=== PATIENT | female | born 1965 | race Two or more races ===

== ENCOUNTER 2020-07-20 07:23 | Day surgery (SDC) | payer BC ==
[2020-07-20] VITALS (10 sets, daily range): BP systolic 91–121; BP diastolic 55–84
[~2020-07-20] VITALS: Ht 170.2 cm; Wt 61.2 kg
[~2020-07-20 07:23] MED LIST: AHCC PO; CALCIUM MAGNES1 EAC2 PO; FISH OIL CAP1000 MG ORAL; OCCUVITE PO; PHYTOESTROGEN; PHYTOESTROGEN PO; SEROVITAL PO; VITAMIN C500 M1 ORAL; VITAMIN E100 UNI3 ORAL; WOMEN'S DAILY1 EAC2 PO; [UNRECOGNIZED DRUG - OTHER] PO; [UNRECOGNIZED DRUG - OTHER] PO
[2020-07-20] MEDS ORDERED: LR 1000ml 1,000 ML IVLG SCH ×2 (08:00→08:45)
[2020-07-20] MEDS ORDERED: Midazolam 2mg/2ml Inj ONE (08:04)
[2020-07-20] MEDS ORDERED: fentaNYL 100 mcg/2 mL IV ONE (08:04)
[2020-07-20] MEDS ORDERED: relizen PO (08:06)
[2020-07-20] MEDS ORDERED: LR 1000ml ONE (08:30)
--- NOTE | 2020-07-20 08:31 | Anethesia Preoperative Eval ---
Anesthesia Pre-op PMH/ROS General Date of Evaluation: Jul 20, 2020 Time of Evaluation: 08:28 Anesthesiologist: Any ASA Score: ASA 2 Mallampati Score Class I : Soft palate, uvula, fauces, pillars visible Class II: Soft palate, uvula, fauces visible Class III: Soft palate, base of uvula visible Class IV: Only hard plate visible Mallampati Classification: Class II Surgeon: Kasia Diagnosis: Abdominal pain Surgical Procedure: EGD Colonoscopy Anesthesia History: none Family History: no anesthesia problems Allergies: Coded Allergies: No Known Allergies (Unverified , 07/18/20) Medications: see eMAR Patient NPO?: Yes Past Medical History Cardiovascular: Denies: HTN, CAD, AR, valve dz, arrhythmia, other Pulmonary: Denies: asthma, COPD, LAURO, other Gastrointestinal/Genitourinary: Reports: GERD; Denies: CRI, ESRD, other Neurologic/Psychiatric: Reports: depression/anxiety; Denies: dementia, CVA, TIA, other Endocrine: Denies: DM, hypothyroidism, steroids, other HEENT: Denies: cataract (L), cataract (R), glaucoma, SENECA (L), SENECA (R), other Hematology/Immune: Reports: anemia - mild; Denies: DVT, bleeding disorder, other Musculoskeletal/Integumentary: Denies: OA, RA, DJD, DDD, edema, other PMH Narrative: as above PSxH Narrative: see H&P Anesthesia Pre-op Phys. Exam Physician Exam Last Vital Signs Date Time Temp Pulse Resp B/P (MAP) Pulse Ox O2 Delivery O2 Flow Rate FiO2 07/20/20 08:22 Room Air 07/20/20 08:21 97.9 80 20 121/84 100 Constitutional: NAD Neurologic: CN 2-12 intact Cardiovascular: RRR, no M/R/G Respiratory: CTA Gastrointestinal: S/NT/ND Airway Exam Mallampati Score: Class II MO: full Neck: flexible ROM: full Teeth: intact Dentures: no upper, no lower Anesthesia Pre-op A/P Labs Urine Test Test 07/20/20 07:30 Urine HCG, Qualitative Negative (NEGATIVE) Studies Pre-op Studies: EKG - SR Risk Assessment & Plan Assessment: ASA 2 Plan: MAC Status Change Before Surgery: No Lucho Agarwal MD Jul 20, 2020 08:31
--- NOTE | 2020-07-20 08:40 | Pre-Procedure Note/Attestation ---
Pre-Procedure Note/Attestation Complete Prior to Procedure Planned Procedure: not applicable Procedure Narrative: esophagogastroduodenoscopy and colonoscopy Indications for Procedure Pre-Operative Diagnosis: + cologuard Attestation I attest that I discussed the nature of the procedure; its benefits; risks and complications; and alternatives (and the risks and benefits of such alternatives ), prior to the procedure, with the patient (or the patient's legal manufacturing sales representative). I attest that, if there was a reasonable possibility of needing a blood transfusion, the patient (or the patient's legal manufacturing sales representative) was given the [facility] standardized written summary, pursuant to the [place] Blood Safety Act ([place] Health and Safety Code # 1645, as amended). I attest that I re-evaluated the patient just prior to the surgery and that there has been no change in the patient's H&P, except as documented below: Quirino Pedroza MD Jul 20, 2020 08:40
--- NOTE | 2020-07-20 08:42 | Short Stay Surgery H&P ---
History of Present Illness History of Present Illness Chief Complaint + cologuard, GERD HPI Jasmina Buckley is a 55 year old female who was admitted on for + Collar Guard Patient History Allergies: Coded Allergies: No Known Allergies (Unverified , 07/18/20) PAST MEDICAL HISTORY: (1) GERD (gastroesophageal reflux disease) (2) H/O breast augmentation Medication History Scheduled Ascorbic Acid* (Vitamin C*), 500 MG ORAL DAILY, (Reported) Ca Carb & Gluc/Mag Ox & Gluc (Calcium Magnesium Caplet), 1 EACH PO DAILY, (Reported) Fish Oil (Fish Oil 1,000 mg Capsule), 1,000 MG ORAL DAILY, (Reported) Multivits,Ca,Minerals/Iron/Fa (Women's Daily Caplet), 1 EACH PO DAILY, (Reported) Vitamin E Mixed (Vitamin E), 100 UNIT ORAL DAILY, (Reported) [Ahcc], 2 TAB PO DAILY, (Reported) [Colhash], 1 TAB PO DAILY, (Reported) [HAjoint], 2 TAB PO DAILY, (Reported) [Occuvite], 2 TAB PO DAILY, (Reported) [Phytoestrogen], 1 TAB PO DAILY, (Reported) [Serovital], 1 PACKET PO DAILY, (Reported) [relizen], 1 TAB PO DAILY, (Reported) Review of Systems Cardiovascular: Reports: no symptoms Respiratory: Reports: no symptoms Skeletal: Reports: no symptoms Gastrointestinal: Reports: gastro esophageal reflux disease Genitourinary: Reports: no symptoms Neurologic: Reports: no symptoms Endocrine: Reports: no symptoms Hematologic: Reports: no symptoms Physical Exam Vital Signs Last Vital Signs Date Time Temp Pulse Resp B/P (MAP) Pulse Ox O2 Delivery O2 Flow Rate FiO2 07/20/20 08:22 Room Air 07/20/20 08:21 97.9 80 20 121/84 100 Labs Laboratory Tests Test 07/20/20 07:30 Urine HCG, Qualitative Negative (NEGATIVE) Skin: normal HENT: normal Heart: normal Lungs: normal Abdomen: normal Extremities: normal Plan Plan of Care EGD and colonoscopy Attestation Are the patient's medical conditions optimized for surgery? Attestation Response: yes Quirino Pedroza MD Jul 20, 2020 08:41
[2020-07-20] MEDS ORDERED: fentaNYL 100 mcg/2 mL IV PRN (08:45)
--- NOTE | 2020-07-20 09:10 | Endoscopy Procedure Note ---
Endoscopy Procedure Note General Indication for Procedure: cologuard +, GERD Procedures Performed: EGD, colonoscopy Operative Findings/Diagnosis: gastritis, melanosis coli Specimen: yes Pt Tolerated Procedure Well: Yes Estimated Blood Loss: none Anesthesia Anesthesiologist: nika Anesthesia: MAC Inserted Devices Implant(s) used?: No Quality Quality of Bowel Preparation: Good Did scope reach the cecum?: Yes Was there any complications?: No GI Core Measures 50 yrs or older w/o bx or poly: No 10yrs. F/U recommended: Yes If not recommended, why?: Above average risk 18 years or older w/prev. colo: No Quirino Pedroza MD Jul 20, 2020 09:10
--- NOTE | 2020-07-20 09:19 | Immediate Post-Op Evaluation ---
Immediate Post-Op Evalulation Immediate Post-Op Evalulation Procedure: EGD Colonoscopy Date of Evaluation: Jul 20, 2020 Time of Evaluation: 09:18 IV Fluids: 800 Blood Products: none Estimated Blood Loss: none Urinary Output: none Blood Pressure Systolic: 104 Blood Pressure Diastolic: 56 Pulse Rate: 78 Respiratory Rate: 18 O2 Sat by Pulse Oximetry: 99 Temperature (Fahrenheit): 97.7 Pain Score (1-10): 1 Nausea: No Vomiting: No Complications none Patient Status: awake, patent, none Hydration Status: adequate Lucho Agarwal MD Jul 20, 2020 09:18
--- NOTE | 2020-07-20 10:00 | Procedure Note ---
DATE OF PROCEDURE: 07/20/2020 SURGEON: Quirino Pedroza MD. REFERRING PHYSICIAN: John Philip MD. PROCEDURE: Upper endoscopy with biopsy and colonoscopy with biopsy. ANESTHESIA: Per Dr. Agarwal. INSTRUMENT: Olympus adult flexible upper endoscope and colonoscope. INDICATION: Cologuard positive and chronic GERD. REASON FOR PROCEDURE: The procedure, risks, benefits, and possible consequences, including hemorrhage, aspiration, perforation and infection, and alternative treatments, were explained to the patient/legal guardian by Dr. Quirino Pedroza and the patient/legal guardian understood and accepted these risks. PROCEDURE IN DETAIL: After informed consent was obtained and the patient was adequately sedated, Olympus upper endoscope was advanced from mouth into the second portion of the duodenum and retroflexion was performed in the stomach. GE junction was found to be about 40 cm from the incisors. The patient had evidence of small hiatal hernia without any significant esophagitis. In the stomach, there was diffuse gastritis. Random biopsy from antrum was obtained to rule out H. pylori infection. At this time, the upper endoscope was retrieved and the patient was turned over for colonoscopy. First, rectal exam was performed, which was positive for internal hemorrhoids. Then, the scope was advanced from the rectum into the cecum, then subsequently to terminal ileum. Quality of prep was very good. The patient had significant melanosis coli throughout the colon making this examination challenging. No obvious mass was seen. There was one diminutive polyp in the rectum removed with cold biopsy forceps technique. Retroflexion of rectum was performed which did not show any obvious hemorrhoids. SUMMARY OF FINDINGS: 1. Gastritis. 2. Small hiatal hernia. 3. Severe melanosis coli. 4. One diminutive rectal polyp. RECOMMENDATIONS: 1. Follow biopsy results and treat accordingly. 2. We recommend repeat colonoscopy in 5 years. 3. We recommend avoiding herbal laxatives. I want to thank Dr. John Philip for this kind referral. Quirino Pedroza M.D. DR: EDGAR JOB#: [id number] CC: John Philip M.D.; Fax#: [phone]
--- NOTE | 2020-07-20 11:00 | 48 Hour Post Anesthesia Eval ---
Post Anesthesia Evaluation Procedure: EGD Colonoscopy Date of Evaluation: Jul 20, 2020 Time of Evaluation: 10:59 Blood Pressure Systolic: 98 0: 56 Pulse Rate: 64 Respiratory Rate: 20 Temperature (Fahrenheit): 97.6 O2 Sat by Pulse Oximetry: 98 Airway: patent Nausea: No Vomiting: No Pain Intensity: 1 Hydration Status: adequate Cardiopulmonary Status: stable Mental Status/LOC: patient returned to baseline Follow-up Care/Observations: n/a Post-Anesthesia Complications: none Follow-up care needed: ready to discharge Lucho Agarwal MD Jul 20, 2020 11:00
== END 2020-07-20 10:25 | disposition home or self-care (01) ==
LOC: GAS 07:23
DX: K21.9 Gastro-esophageal reflux disease without esophagitis (principal); K29.70 Gastritis, unspecified, without bleeding; K44.9 Diaphragmatic hernia without obstruction or gangrene; K63.89 Other specified diseases of intestine; K62.1 Rectal polyp; F32.9 Major depressive disorder, single episode, unspecified; F41.9 Anxiety disorder, unspecified
CPT/HCPCS: 43239; 45380; 81025; 93005; 94003; J2250; J2704; J3010; J7120; U0002; 94150